=== PATIENT | male | born 1935 | race Caucasian/White ===

== ENCOUNTER 2016-05-28 01:32 | Inpatient (IN) | payer MEDICARE, OTHER ==
[~2016-05-28] VITALS: Ht 177.8 cm; Wt 64.0 kg
[2016-05-28] MEDS ORDERED: IPRATROPIUM 0.5MG/ALBUTEROL 2.5MG INH SOL UD 3ML (DUONEB)(J7620) As Ordered ONE ×2 (02:23→07:03)
[2016-05-28] MEDS ORDERED: ACETAMINOPHEN 325 MG TAB As Ordered ONE (02:34)
[2016-05-28 02:48] LABS: ABG DEVICE NASAL CANN; ABG HCO3 23.6 MEQ/L (22.0-26.0); ABG PARTIAL PRESSURE CO2 35.3 mmHg (35.0-45.0); ABG PARTIAL PRESSURE O2 65.4 mmHg (75.0-100.0); ABG STANDARD HCO3 24.4 MEQ/L (22.0-26.0); ABG TOTAL CO2 24.7 MEQ/L (23.0-31.0); ABG pH (ARTERIAL) 7.443 UNITS (7.350-7.450)
[2016-05-28 03:14] LABS: BASO % 0.4 % (0.0-1.0); EOS # 0.1 K/mm3 (0.0-0.50); EOS % 0.6 % (0.0-3.0); LARGE UNSTAINED CELL # 0.2 K/mm3 (0.0-0.4); LARGE UNSTAINED CELL % 1.5 % (0.0-4.0); LYMPH # 0.4 K/mm3 (1.5-4.5); LYMPH % 3.5 % (24.0-44.0); MEAN CORPUSCULAR HEMOGLOBIN 31.3 pg (27.0-33.0); MEAN CORPUSCULAR HGB CONC 32.5 g/dl (32.0-36.5); MEAN CORPUSCULAR VOLUME 96.3 fl (80.0-96.0); MONO # 0.6 K/mm3 (0.0-0.8); PLATELET COUNT, AUTOMATED 164 k/mm3 (150-450); RED CELL DISTRIBUTION WIDTH 12.5 % (11.5-14.5); WHITE BLOOD COUNT 12.3 K/mm3 (4.0-10.0)
[2016-05-28 03:33] LABS: ANION GAP 9 MEQ/L (8-16); BLOOD UREA NITROGEN 27 MG/DL (7-18); CALCIUM LEVEL 8.2 MG/DL (8.8-10.2); CARBON DIOXIDE LEVEL 29 MEQ/L (21-32); CHLORIDE LEVEL 104 MEQ/L (98-107); CREATININE FOR GFR 1.19 MG/DL (0.70-1.30); GLOMERULAR FILTRATION RATE > 60.0 (>35); GLUCOSE, FASTING 122 MG/DL (83-110); POTASSIUM SERUM 5.1 MEQ/L (3.5-5.1); SODIUM LEVEL 142 MEQ/L (136-145)
[2016-05-28] MEDS ORDERED: CEFUROXIME INJ 750 MG VIAL (J0697) As Ordered ONE (04:01)
[2016-05-28] MEDS ORDERED: IPRATROPIUM 0.5MG/ALBUTEROL 2.5MG INH SOL UD 3ML (DUONEB)(J7620) NEB PRN (04:30)
[2016-05-28] MEDS ORDERED: ONDANSETRON 4MG/2ML VIAL (J2405) IV PRN (04:30)
[2016-05-28] MEDS ORDERED: ACETAMINOPHEN TAB 650MG DOSE (2X325MG) PO PRN (04:30)
[2016-05-28] MEDS ORDERED: LISI10TA4 PO (04:56)
[2016-05-28] MEDS ORDERED: FLOM5CAP PO (04:56)
[2016-05-28] MEDS ORDERED: SIMV40TA2 PO (04:56)
[2016-05-28] MEDS ORDERED: ASPI81TA7 PO (04:56)
[2016-05-28] MEDS ORDERED: CARB25TA PO (04:56)
[2016-05-28] MEDS ORDERED: SLEE1TAB PO (04:58)
[2016-05-28] MEDS ORDERED: diphenhydrAMINE 25 MG CAP PO PRN (05:00)
--- NOTE | 2016-05-28 05:17 | HPE ---
DATE OF ADMISSION: 05/28/2016 PRIMARY CARE PROVIDER: Scot Boyle. CHIEF COMPLAINT: Shortness of breath. HISTORY OF PRESENT ILLNESS: This is an 80-year-old male patient with underlying medical history of Parkinson's disease, hypertension, coronary arterial disease, gastroesophageal reflux disease (GERD), questionable esophageal stricture, was brought to the emergency room for acute worsening shortness of breath. As per patient, for the past 1-2 weeks he has been having an upper respiratory tract infection, coughing productive of green sputum with mild dyspnea, not on home oxygen. Patient lives about [place] away. He comes here to visit his girlfriend every 2 weeks. Also with history of asbestosis exposure and chronic obstructive pulmonary disease (COPD) not on home oxygen. Earlier last night, patient had an episode of dyspnea, acutely worsened, called emergency medical services (EMS), subsequently brought to the emergency room. In the emergency room, patient received nebulizer treatment, as well as intravenous (IV) steroids with improvement of symptoms. Patient was also found to be febrile, initially with mild hypoxia. Patient denies any chest pain, pressure or discomfort. Denies any sick contact. Denies any palpitations. Denies any abdominal pain. Denies any diarrhea or constipation. ALLERGIES: No known allergies reported. PAST MEDICAL HISTORY: 1. COPD. 2. Asbestosis. 3. Parkinson's disease. 4. Hypertension. 5. Coronary arterial disease. 6. GERD. 7. Esophageal stricture. PAST SURGICAL HISTORY: 1. Cardiac stent 6 years ago. 2. Pericardial tissue heart valve. 3. Appendectomy. 4. Back surgery 5 years ago. SOCIAL HISTORY: Patient quit smoking 25 years ago, 2 packs per day for 30 years. Quit alcohol drinking 22 years ago. No illicit drug use. FAMILY HISTORY: Noncontributory. REVIEW OF SYSTEMS: Negative except for those mentioned in the history of present illness (HPI). HOME MEDICATIONS: - carbidopa/levodopa 25/100 mg by mouth three times a day - lisinopril 10 mg by mouth daily twice a day - aspirin 81 mg by mouth daily - Viagra 100 mg one tablet by mouth daily - Flomax 0.4 mg by mouth daily - Zocor 40 mg by mouth daily - Benadryl 25 mg by mouth as needed PHYSICAL EXAMINATION: VITAL SIGNS: Blood pressure 113/58, pulse 120, respirations 24, temperature 100.8, pulse oximetry 91% on 2 liter nasal cannula. GENERAL: Patient alert and oriented times three in no acute distress. HEENT: Normocephalic, atraumatic. PULMONARY: Bilateral expiratory wheeze. Mild rhonchi. CARDIAC: Mild tachycardia, regular, S1, S2. ABDOMEN: Soft, nontender, nondistended. Positive bowel sounds. EXTREMITIES: No edema bilateral lower extremities. EKG pending. LABORATORY: WBC 12.3, hemoglobin and hematocrit 12.7/42.1, platelets 164. AB.44, 35.3, 65.4, 23.6. Chemistry: Sodium 142, potassium 5.1, chloride 104, bicarbonate 29, BUN 27, creatinine 1.12, lactic acid 1.9. ASSESSMENT AND PLAN: This is an 80-year-old male patient with underlying medical history of chronic obstructive pulmonary disease (COPD), asbestosis, Parkinson's disease, hypertension, coronary arterial disease, gastroesophageal reflux disease (GERD), esophageal stricture, admitted with acute COPD exacerbation likely secondary to community-acquired bacterial pneumonia. 1. Acute hypoxia secondary to acute COPD exacerbation with underlying asbestosis likely due to community-acquired bacterial pneumonia. Followup respiratory panel. Influenza negative. Sputum cultures. Blood cultures. Followup C-reactive protein. Rocephin, azithromycin for now. Solu-Medrol for intravenous (IV) steroids. Taper as tolerated. Nebulizer treatments. Will place the patient on Symbicort as well. Wean FiO2. Physical therapy. 2. Parkinson's disease. Continue home medication. 3. Hypertension. Patient currently normotensive. Unknown baseline creatinine function. Will hold lisinopril for now. 4. Coronary arterial disease. Holding angiotensin-converting enzyme (YASMANI) inhibitor. Continue aspirin. 5. Sinus tachycardia likely secondary to nebulizer treatment. Will obtain EKGs and continue to follow. Followup thyroid function tests. 6. Dyslipidemia. Continue statin. 7. Deep venous thrombosis (DVT) prophylaxis. Heparin subcutaneously. DISPOSITION PLANNING: Pending clinical improvement. Wean FiO2. Physical therapy.
[2016-05-28] MEDS: IPRATROPIUM 0.5MG/ALBUTEROL 2.5MG INH SOL UD 3ML (DUONEB)(J7620) NEB SCH ×3 (07:09→20:00)
[2016-05-28] MEDS: SYMBICORT 160/4.5MCG INHALER 6GM INH SCH ×3 (07:10→20:42)
[2016-05-28 07:26] LABS: THYROXINE (T4) 8.9 UG/DL (4.5-12.0)
[2016-05-28 08:00] VITALS: BP 113/57
--- NOTE | 2016-05-28 08:15 | REP ---
CHEST X-RAY: Two views. HISTORY: Shortness of breath. Comparison chest x-ray June 17, 2009. FINDINGS: Oxygen delivery tubing is seen. The lungs are hyperinflated consistent with COPD. The patient is status post aortic valve replacement. The heart is not enlarged. No infiltrate is seen in the lung martínez. Pleural angles are sharp. There are degenerative changes in the thoracic spine. IMPRESSION: Hyperinflation consistent with COPD. Aortic valve replacement. No acute disease. Signed by Daniel Greene MD 05/28/2016 10:06 A
--- NOTE | 2016-05-28 09:05 | ECGEPIP ---
Stationary ECG Study [facility] - ED Test Date: 2016-05-28 Pat Name: BALBIR CUI Department: Room: [place] [address] Gender: M Brewing Director: iris : 1935 Requested By: MAO CRISOSTOMO Order Number: [id number] Reading MD: Jolie Bryan Measurements Intervals [place] Rate: 87 P: 49 [place]: 168 QRS: -24 QRSD: 78 T: 41 QT: 338 QTc: 407 Interpretive Statements SINUS RHYTHM LOW VOLTAGE LIMB BORDERLINE LEFT AXIS DEVIATION MODERATE ST DEPRESSION BASELINE ARTIFACT LIMITS INTERPRETATION NO PRIOR FOR COMPARISON Electronically Signed On 05-28-2016 9:05:31 EST by Jolie Bryan
[2016-05-28] MEDS: cefTRIAXone SOD 2 GM in D5W MINI-BAG PLUS 50 ML IV SCH (09:23)
[2016-05-28] MEDS: methylPREDNISolone INJ 125 MG/2 ML VIAL (J2930) IV SCH ×2 (09:24→17:36)
[2016-05-28] MEDS: AZITHROMYCIN 250 MG TAB PO SCH (09:25)
[2016-05-28] MEDS: SINEMET 25-100 MG TAB PO SCH ×3 (09:25→20:39)
[2016-05-28] MEDS: guaiFENesin ER 600 MG TAB PO SCH ×2 (09:25→20:39)
[2016-05-28] MEDS: PANTOPRAZOLE 40MG TAB (PROTONIX) PO SCH (09:25)
[2016-05-28] MEDS: TAMSULOSIN 0.4 MG CAP PO SCH (09:25)
[2016-05-28] MEDS: SENOKOT S TAB PO SCH ×2 (09:26→20:39)
[2016-05-28] MEDS: HEPARIN SOD (PORCINE) 5000 UNITS/ML VIAL SC SCH ×3 (09:26→20:39)
[2016-05-28] MEDS: ASPIRIN 81 MG ENTERIC TAB PO SCH (09:26)
[2016-05-28 12:00] VITALS: BP 151/74
[2016-05-28] MEDS ORDERED: HEPARIN SOD (PORCINE) 5000 UNITS/ML VIAL As Ordered ONE (14:34)
[2016-05-28 16:00] VITALS: BP 116/66
--- NOTE | 2016-05-28 17:17 | EDDOCDS ---
Physician Documentation [facility] Name: Braeden Marmolejo Age: 80 yrs Sex: Male : 1935 Arrival Date: 05/28/2016 Time: 01:32 Bed 19 Private MD: Disposition: 05/28/16 04:07 Hospitalization ordered by Margaret Thomas for Inpatient Admission. Preliminary diagnosis are Hypoxemia, Bronchitis, not specified as acute or chronic, Pneumonia in diseases classified elsewhere. - Bed requested for PCU. - Status is Inpatient Admission. dsf - Condition is Stable. - Problem is new. - Symptoms have improved. Historical: - Allergies: No known drug Allergies; - Home Meds: 1. carbidopa-levodopa 25-100 mg Oral tab 1 tab 3 times per day 2. lisinopril 10 mg Oral tab 1 tab TWICE A DAY 3. aspirin 81 mg Oral tab 1 tab once daily 4. Viagra 100 mg Oral tab 1 tab once daily 5. tamsulosin 0.4 mg oral cp24 1 cap once daily 6. simvastatin 40 mg Oral tab 1 tab once daily 7. Benadryl 25 mg Oral cap - PMHx: Parkinson's Disease; Hypertension; CAD; GERD; Esophageal Stricture; - PSHx: Heart stents; Pericardial tissue heart valve; Appendectomy; Disc surgery; - Social history: Smoking status: Patient states former smoker of tobacco. No barriers to communication noted, The patient speaks fluent Tajik, Speaks appropriately for age. - Family history: Not pertinent. - : The pt / caregiver states he / she is not on anticoagulants. Home medication list is obtained from pill bottles. - Exposure Risk Screening:: None identified. Vital Signs: 05/28 01:45 BP 113 / 58 LA Sitting (auto/reg); Pulse 121 MON; Resp 24 S; Temp 100.8(O); Pulse Ox cln 91% on 2 lpm NC; Weight 65.77 kg / 145 lbs (R); Height 5 ft. 10 in. (177.80 cm) (R); Pain 0/10; 04:14 BP 101 / 56; Pulse 91; Resp 18; Temp 100.3(O); Pulse Ox 96% on R/A; ko2 07:00 Temp 99.8(TE); ko2 01:45 Body Mass Index 20.81 (65.77 kg, 177.80 cm) cln MDM: 02:16 Chest, 2 View (pa\E\lat) Ordered. EDMS 02:16 -Blood Culture (Adults Only), peripheral from different site, or from device/port/PICC cs11 etc. if present ordered. 02:16 Call Respiratory ordered. cs11 02:16 IV Saline Lock ordered. cs11 02:16 Acetaminophen Tablet 975 mg PO once ordered. cs11 02:17 Albuterol-Ipratropium 3 ml Inhalation once ordered. cs11 02:17 Call Respiratory ordered. cs11 02:17 -Blood Culture (Adults Only), peripheral from different site, or from device/port/PICC ml3 etc. if present complete. 02:17 Lactic Acid (Drake tube on ice) Ordered. EDMS 02:17 CBC with Diff Ordered. EDMS 02:17 MED Profile Ordered. EDMS 02:17 -Arterial Blood Gas Ordered. EDMS 02:17 -Influenza A&B Rapid Antigen - Nose Ordered. EDMS 02:17 -Blood Culture Ordered. EDMS 02:18 Call Respiratory complete. ml3 02:18 Call Respiratory complete. ml3 02:20 BLOOD CULTURES Ordered. EDMS 03:12 -Arterial Blood Gas Reviewed. cs11 03:38 Financial registration complete. slh 03:53 CBC with Diff Reviewed. cs11 03:53 MED Profile Reviewed. cs11 03:53 -Influenza A&B Rapid Antigen - Nose Reviewed. cs11 03:53 Lactic Acid (Drake tube on ice) Reviewed. cs11 03:55 cefUROXime 1.5 grams IV at calculated rate once over 30 mins; dilute in 50mL of NS or cs11 D5W ordered. 04:01 BED REQUEST+ADM ordered. EDMS 04:11 [facility] Payment Agreement was scanned into [employer] and attached to record. [facility] 04:23 ECG WITH READING ER PHYS+CARDIAG ordered. EDMS 04:26 RESPIRATORY PANEL Ordered. EDMS 04:26 SPUTUM CULTURE AND GRAM STAIN Ordered. EDMS 04:30 PHYSICAL THERAPY EVAL & TREAT ordered. EDMS 04:31 Admission / Observation Status ordered. EDMS 04:32 LOW FAT LOW CHOLESTEROL DIET ordered. EDMS 04:39 THYROID PROFILE Ordered. EDMS 06:47 C REACTIVE PROTEIN QUANTITATIV Ordered. EDMS Administered Medications: 02:40 Drug: Acetaminophen 975 mg [acetaminophen 325 mg tablet (3 tabs)] Route: PO; ko2 02:44 Drug: Albuterol-Ipratropium 3 ml [ipratropium-albuterol 0.5 mg-3 mg(2.5 mg base)/3 mL nk1 nebulization soln (3 mL)] Route: Inhalation; 02:50 Follow up: Response: Nebulizer completed nk1 04:12 Drug: cefUROXime 1.5 grams [cefuroxime sodium 750 mg solution for injection] Route: IV; ko2 Rate: calculated rate; Infused Over: 30 mins; Site: right forearm; 05:10 Follow up: IV Status: Completed infusion; IV Intake: 50ml ko2 Signatures: Dispatcher [employer] EDMS Barbra Stahl, Corporate Compliance Manager Unit ml3 Marley RamosRN RN bonnie3 Eli DamonRN RN davidf Guero White, DO cs11 Bonnie Olivo RN RN ko2 Michelle Hdz [facility] Claire Smith nk1 The chart was reviewed and I authenticate all verbal orders and agree with the evaluation and treatment provided.Corrections: (The following items were deleted from the chart) 06:47 04:26 C REACTIVE PROTEIN QUANTITATIV ordered. EDMS EDMS Attachments: 04:11 [facility] Payment Agreement [facility] MTDD
--- NOTE | 2016-05-28 17:17 | EDDOCDS ---
Nurse's Notes [facility] Name: Braeden Marmolejo Age: 80 yrs Sex: Male : 1935 Arrival Date: 05/28/2016 Time: 01:32 Bed 19 Private MD: Diagnosis: Hypoxemia;Bronchitis, not specified as acute or chronic;Pneumonia in diseases classified elsewhere Presentation: 05/28 01:37 Presenting complaint: Presenting complaint: EMS states: pt was laying in bed and ko2 couldn't breath. Audible wheezes per EMS. Pt has felt like hes been getting a cold the last 4 days. 01:39 Suicide/Homicide risk assessment- the patient denies having any suicidal and/or ko2 homicidal ideations and does not present with any other emotional, behavioral or mental health complaints. Transition of care: patient was not received from another setting of care. Care prior to arrival: See EMS report. Medications administered prior to arrival: Nebulized Albuterol, Saline lock initiated. 01:39 Acuity: ARTURO Level 3 ko2 01:39 Method Of Arrival: Ambulance ko2 03:03 Adult Sepsis Screening: The patient does not have new or worsening altered mentation. ko2 Patient's respiratory rate is less than 22. Systolic blood pressure is greater than 100. Patient has a qSOFA score of 0- Negative Sepsis Screen. Status: Patient is not a creative services writer or dependent. Triage Assessment: 02:02 General: Appears in no apparent distress, Behavior is appropriate for age, cooperative. ko2 Pain: Denies pain. The patient is triaged at the bedside. See Assessment in Nurses Notes section of ED record. Neurological: Level of Consciousness is awake, alert. Respiratory: Onset: The symptoms/episode began/occurred suddenly, Airway is patent Respiratory effort is even, unlabored, Reports cough that is. Derm: Skin is normal. Historical: - Allergies: No known drug Allergies; - Home Meds: 1. carbidopa-levodopa 25-100 mg Oral tab 1 tab 3 times per day 2. lisinopril 10 mg Oral tab 1 tab TWICE A DAY 3. aspirin 81 mg Oral tab 1 tab once daily 4. Viagra 100 mg Oral tab 1 tab once daily 5. tamsulosin 0.4 mg oral cp24 1 cap once daily 6. simvastatin 40 mg Oral tab 1 tab once daily 7. Benadryl 25 mg Oral cap - PMHx: Parkinson's Disease; Hypertension; CAD; GERD; Esophageal Stricture; - PSHx: Heart stents; Pericardial tissue heart valve; Appendectomy; Disc surgery; - Social history: Smoking status: Patient states former smoker of tobacco. No barriers to communication noted, The patient speaks fluent Serbian, Speaks appropriately for age. - Family history: Not pertinent. - : The pt / caregiver states he / she is not on anticoagulants. Home medication list is obtained from pill bottles. - Exposure Risk Screening:: None identified. Screenin:03 Screening information is obtained from the patient. Fall risk: No risks identified. ko2 Assistance ADL's: requires no assistance with activities of daily living. Abuse/DV Screen: The patient / caregiver reports he/she is: not in a situation that causes fear, pain or injury. Nutritional screening: No deficits noted. Advance Directives: Currently, there is no health care proxy. There is no active DNR order. There is no living will. There is no Power of Baseball Scout. home support is adequate. Assessment: 02:02 General: See triage assessment. ko2 03:02 General: Appears in no apparent distress, Behavior is appropriate for age, cooperative. ko2 Pain: Denies pain. Neurological: Level of Consciousness is awake, alert. Cardiovascular: Heart tones S1 S2 present. Respiratory: Airway is patent Respiratory effort is even, unlabored, Breath sounds are diminished Breath sounds with wheezes. Derm: Skin is normal. 04:13 General: Appears in no apparent distress, Behavior is appropriate for age, cooperative. ko2 Neurological: Level of Consciousness is awake, alert. Respiratory: Airway is patent Respiratory effort is even, unlabored. Derm: Skin is normal, Skin temperature is warm. 05:23 General: Appears in no apparent distress, comfortable, Behavior is appropriate for age, ko2 cooperative. Neurological: Level of Consciousness is awake, alert. Respiratory: Airway is patent Respiratory effort is even, unlabored. Derm: Skin is normal. 06:25 General: Appears in no apparent distress, comfortable, Behavior is appropriate for age, ko2 cooperative. Neurological: Level of Consciousness is awake, alert. Respiratory: Airway is patent Respiratory effort is even, unlabored. Derm: Skin is normal. 07:11 General: Report given to JOSE D Nelson. See [facility] for further ko2 documentation.. 09:11 Cardiovascular: Rhythm is sinus rhythm. [facility] Vital Signs: 01:45 BP 113 / 58 LA Sitting (auto/reg); Pulse 121 MON; Resp 24 S; Temp 100.8(O); Pulse Ox cln 91% on 2 lpm NC; Weight 65.77 kg (R); Height 5 ft. 10 in. (177.80 cm) (R); Pain 0/10; 04:14 BP 101 / 56; Pulse 91; Resp 18; Temp 100.3(O); Pulse Ox 96% on R/A; ko2 07:00 Temp 99.8(TE); ko2 01:45 Body Mass Index 20.81 (65.77 kg, 177.80 cm) cln Vitals: 03:04 Log In Time N/A - ambulance arrival. ko2 ED Course: 01:33 Patient visited by Barbra Stahl, Nuclear Pharmacist. ml3 01:33 Patient moved to Waiting ml3 01:35 Marie RodriguezRN is Primary Nurse. ml3 01:35 Bonnie Olivo,JOSE D is Primary Nurse. ml3 01:35 Patient moved to 9 ml3 01:41 Triage Initiated ko2 01:46 Patient visited by Anjana Mosley, ZACHARY. cln 02:03 Patient visited by Bonnie Olivo RN. ko2 02:03 Maintain field IV. Dressing intact. Good blood return noted. Site clean & dry. Gauge & ko2 site: 18 gauge right AC. 02:05 Mao Crisostomo DO is Attending Physician. cs11 02:06 Patient visited by Mao Crisostomo DO. cs11 02:44 -Arterial Blood Gas Sent. nk1 02:55 Discontinued lock intact, bleeding controlled, pressure dressing applied, No ko2 redness/swelling at site. 03:00 Inserted saline lock: 20 gauge in left forearm. ko2 03:01 Patient visited by Bonnie Olivo RN. ko2 03:02 BLOOD CULTURES Sent. ko2 03:02 MED Profile Sent. ko2 03:02 CBC with Diff Sent. ko2 03:02 Lactic Acid (Drake tube on ice) Sent. ko2 03:02 -Influenza A&B Rapid Antigen - Nose Sent. ko2 03:03 The patient / caregiver is instructed regarding the plan of care and ED course. ko2 03:52 Patient visited by Bonnie Olivo RN. ko2 04:05 Margaret Thomas is Hospitalizing Provider. cs11 04:09 Patient name changed from Braeden\S\\S\Snow\S\ to Braeden\S\J\S\Snow. EDMS 04:11 [facility] Payment Agreement was scanned into [employer] ([email or web address]) and attached to record. [facility] 04:36 EKG done. (by ED staff). Reviewed by Mao Crisostomo DO. cln 04:40 Primary Nurse role handed off by Marie Rodriguez RN ko2 04:51 Patient moved to Admit Hold ml3 05:24 Patient visited by Bonnie Olivo RN. ko2 06:42 Patient moved to Apr 07:44 Primary Nurse role handed off by Bonnie Olivo RN ar3 08:49 Chest, 2 View (pa\E\lat) Returned. EDMS 09:11 Patient visited by Dimitry Glover RN. bcj 09:24 EKG-ADULT Returned. EDMS Administered Medications: 02:40 Drug: Acetaminophen 975 mg [acetaminophen 325 mg tablet (3 tabs)] Route: PO; ko2 02:44 Drug: Albuterol-Ipratropium 3 ml [ipratropium-albuterol 0.5 mg-3 mg(2.5 mg base)/3 mL nk1 nebulization soln (3 mL)] Route: Inhalation; 02:50 Follow up: Response: Nebulizer completed nk1 04:12 Drug: cefUROXime 1.5 grams [cefuroxime sodium 750 mg solution for injection] Route: IV; ko2 Rate: calculated rate; Infused Over: 30 mins; Site: right forearm; 05:10 Follow up: IV Status: Completed infusion; IV Intake: 50ml ko2 Intake: 05:10 IV: 50.00ml; Total: 50.00ml. ko2 RT: 02:44 ABG's drawn from left brachial artery pressure held for 5 minuntes no bleeding noted nk1 pressure bandage applied specimen sent pt. tolerated well. Initial Med Neb Given as ordered Patient was instructed and evaluated on procedure Patient tolerated procedure well without adverse effect. Respiratory: Airway is patent Respiratory effort is even, unlabored, Breath sounds are coarse. 02:49 Respiratory: Breath sounds are coarse with increased aeration. nk1 Order Results: Lab Order: -Influenza A&B Rapid Antigen - Nose; SPEC'M 05/28/16 02:58 Test: INFLUENZA A RAPID SCR by ICA; Value: INFLUENZA A RESULTS NEGATIVE; Status: F Test: INFLUENZA A RAPID SCR by ICA; Value: Comments:; Status: F Test: INFLUENZA B RAPID SCR by ICA; Value: INFLUENZA B RESULTS NEGATIVE; Status: F Test Note: ; The Influenza test is a direct rapid immunoassay for the qualitative detection of Influenza viral antigen. Cell culture (Viral Culture) testing should be considered to confirm NEGATIVE results and to assist in detecting other viruses that can provide similar clinical symptoms. Please contact the lab within 24 hours ([phone]) if confirmatory testing is desired. Lab Order: Lactic Acid (Drake tube on ice); SPEC'M 05/28/16 02:58 Test: LACTIC ACID SEPSIS PROTOCOL; Value: 1.9; Range: 0.4-2.0; Units: MMOL/L; Status: F Lab Order: CBC with Diff; SPEC'05/28/16 02:58 Test: WHITE BLOOD COUNT; Value: 12.3; Range: 4.0-10.0; Abnormal: Above high normal; Units: K/mm3; Status: F Test: RED BLOOD COUNT; Value: 4.37; Range: 4.30-6.10; Units: M/mm3; Status: F Test: HEMOGLOBIN; Value: 13.7; Range: 14.0-18.0; Abnormal: Below low normal; Units: g/dl; Status: F Test: HEMATOCRIT; Value: 42.1; Range: 42.0-52.0; Units: %; Status: F Test: MEAN CORPUSCULAR VOLUME; Value: 96.3; Range: 80.0-96.0; Abnormal: Above high normal; Units: fl; Status: F Test: MEAN CORPUSCULAR HEMOGLOBIN; Value: 31.3; Range: 27.0-33.0; Units: pg; Status: F Test: MEAN CORPUSCULAR HGB CONC; Value: 32.5; Range: 32.0-36.5; Units: g/dl; Status: F Test: RED CELL DISTRIBUTION WIDTH; Value: 12.5; Range: 11.5-14.5; Units: %; Status: F Test: PLATELET COUNT, AUTOMATED; Value: 164; Range: 150-450; Units: k/mm3; Status: F Test: NEUTROPHILS %; Value: 89.0; Range: 36.0-66.0; Abnormal: Above high normal; Units: %; Status: F Test: LYMPH %; Value: 3.5; Range: 24.0-44.0; Abnormal: Below low normal; Units: %; Status: F Test: MONO %; Value: 5.0; Range: 0.0-5.0; Units: %; Status: F Test: EOS %; Value: 0.6; Range: 0.0-3.0; Units: %; Status: F Test: BASO %; Value: 0.4; Range: 0.0-1.0; Units: %; Status: F Test: LARGE UNSTAINED CELL %; Value: 1.5; Range: 0.0-4.0; Units: %; Status: F Test: NEUTROPHILS #; Value: 11.0; Range: 1.8-7.7; Abnormal: Above high normal; Units: K/mm3; Status: F Test: LYMPH #; Value: 0.4; Range: 1.5-4.5; Abnormal: Below low normal; Units: K/mm3; Status: F Test: MONO #; Value: 0.6; Range: 0.0-0.8; Units: K/mm3; Status: F Test: EOS #; Value: 0.1; Range: 0.0-0.50; Units: K/mm3; Status: F Test: BASO #; Value: 0.0; Range: 0.0-0.2; Units: K/mm3; Status: F Test: LARGE UNSTAINED CELL #; Value: 0.2; Range: 0.0-0.4; Units: K/mm3; Status: F Lab Order: MED Profile; SPEC'M 05/28/16 02:58 Test: GLUCOSE, FASTING; Value: 122; Range: 83-110; Abnormal: Above high normal; Units: MG/DL; Status: F Test: BLOOD UREA NITROGEN; Value: 27; Range: 7-18; Abnormal: Above high normal; Units: MG/DL; Status: F Test: CREATININE FOR GFR; Value: 1.19; Range: 0.70-1.30; Units: MG/DL; Status: F Test: GLOMERULAR FILTRATION RATE; Value: > 60.0; Range: >35; Status: F Test: SODIUM LEVEL; Value: 142; Range: 136-145; Units: MEQ/L; Status: F Test: POTASSIUM SERUM; Value: 5.1; Range: 3.5-5.1; Units: MEQ/L; Status: F Test: CHLORIDE LEVEL; Value: 104; Range: 98-107; Units: MEQ/L; Status: F Test: CARBON DIOXIDE LEVEL; Value: 29; Range: 21-32; Units: MEQ/L; Status: F Test: ANION GAP; Value: 9; Range: 8-16; Units: MEQ/L; Status: F Test: CALCIUM LEVEL; Value: 8.2; Range: 8.8-10.2; Abnormal: Below low normal; Units: MG/DL; Status: F Test Note: ; Units are mL/min/1.73 m2 Chronic Kidney Disease Staging per NKF: Stage I & II GFR >=60 Normal to Mildly Decreased Stage III GFR 30-59 Moderately Decreased Stage IV GFR 15-29 Severely Decreased Stage V GFR <15 Very Little GFR Left ESRD GFR <15 on EMBRYOLOGY PROFESSOR Lab Order: -Arterial Blood Gas; [facility]' 05/28/16 02:27 Test: ABG pH (ARTERIAL); Value: 7.443; Range: 7.350-7.450; Units: UNITS; Status: F Test: ABG PARTIAL PRESSURE CO2; Value: 35.3; Range: 35.0-45.0; Units: mmHg; Status: F Test: ABG PARTIAL PRESSURE O2; Value: 65.4; Range: 75.0-100.0; Abnormal: Below low normal; Units: mmHg; Status: F Test: ABG TOTAL CO2; Value: 24.7; Range: 23.0-31.0; Units: MEQ/L; Status: F Test: ABG HCO3; Value: 23.6; Range: 22.0-26.0; Units: MEQ/L; Status: F Test: ABG BASE EXCESS; Value: 0.0; Range: -2.0-2.0; Status: F Test: ABG STANDARD HCO3; Value: 24.4; Range: 22.0-26.0; Units: MEQ/L; Status: F Test: ABG O2 SATURATION; Value: 94.1; Range: 95.0-99.0; Abnormal: Below low normal; Units: %; Status: F Test: ABG DEVICE; Value: NASAL SHUN; Status: F Lab Order: RESPIRATORY PANEL; SPEC'M 05/28/16 02:57 Test: RESPIRATORY PANEL; Value: RP PANEL RESULT POSITIVE by PCR; Abnormal: Abnormal; Status: F Test: RESPIRATORY PANEL; Value: Comments:; Status: F Test: RESPIRATORY PANEL; Value: ORGANISM 1: RESPIRATORY SYNCYTIAL VIRUS; Status: F Test: RESPIRATORY PANEL; Value: RESPIRATORY SYNCYTIAL VIRUS; Status: F Test: RESPIRATORY PANEL; Value: RSV 1 RSV is the most common cause of severe respiratory; Status: F Test: RESPIRATORY PANEL; Value: RSV 2 disease in infants, with acute bronchiolitis as the; Status: F Test: RESPIRATORY PANEL; Value: RSV 3 major cause of hospitalization. Treatment or; Status: F Test: RESPIRATORY PANEL; Value: RSV 4 prophlaxis with a humanized monoclonal antibody; Status: F Test: RESPIRATORY PANEL; Value: RSV 5 has shown a reduction in disease for high risk infants.; Status: F Test Note: ; This respiratory PCR panel detects Influenza A H1, H3 and 2009 H1 viruses, Influenza B virus, Respiratory syncytial virus, Human metapneumovirus, Parainfluenza virus 1, 2, 3 and 4, Adenovirus, Rhinovirus/Enterovirus, Coronavirus HKU1, NL63, OC43 and 229E, Bordetella pertussis, Mycoplasma pneumoniae and Chlamydia pneumoniae. Lab Order: SPUTUM CULTURE AND GRAM STAIN; SPEC'M 05/28/16 10:54 Test: GRAM STAIN; Value: GRAM STAIN RESULT; Status: F Test: GRAM STAIN; Value: QUALITY: GOOD; Status: F Test: GRAM STAIN; Value: MANY WBCS; Status: F Test: GRAM STAIN; Value: FEW EPITHELIAL CELLS; Status: F Test: GRAM STAIN; Value: FEW GRAM POSITIVE COCCI IN CLUSTERS AND CHAINS; Status: F Lab Order: THYROID PROFILE; SPEC'M 05/28/16 06:31 Test: T UPTAKE; Value: 42; Range: 33-40; Abnormal: Above high normal; Units: %; Status: F Test: THYROXINE (T4); Value: 8.9; Range: 4.5-12.0; Units: UG/DL; Status: F Test: FREE THYROXINE INDEX; Value: 3.7; Range: 1.4-3.8; Units: %; Status: F Test: THYROID STIMULATING HORMONE; Value: 0.903; Range: 0.358-3.740; Units: uIU/ML; Status: F Lab Order: C REACTIVE PROTEIN QUANTITATIV; SPEC'M 05/28/16 06:31 Test: C REACTIVE PROTEIN QUANTITATIV; Value: 0.74; Range: 0.00-0.30; Abnormal: Above high normal; Units: MG/DL; Status: F Radiology Order: Chest, 2 View (pa\E\lat) Test: Chest, 2 View (pa\E\lat) REASON FOR EXAMINATION: Shortness of Breath; CHEST X-RAY: Two views.; ; HISTORY: Shortness of breath.; ; Comparison chest x-ray June 17, 2009.; ; FINDINGS: Oxygen delivery tubing is seen. The lungs are hyperinflated; consistent with COPD. The patient is status post aortic valve replacement. The; heart is not enlarged. No infiltrate is seen in the lung martínez. Pleural angles; are sharp. There are degenerative changes in the thoracic spine.; ; IMPRESSION: Hyperinflation consistent with COPD. Aortic valve replacement. No; acute disease.; ; ; Signed by; Daniel Greene MD 05/28/2016 10:06 A; Radiology Order: EKG-ADULT Test: EKG-ADULT REASON FOR EXAMINATION: eval tachycardia; Stationary ECG Study; [facility] - ED; ; Test Date: 2016-05-28; Pat Name: BRAEDEN MARMOLEJO Department:; Room: [place] [address]; Gender: M Disk Sharpener: cn; : 1935 Requested By: MAO CRISOSTOMO; Order Number: [id number] Reading MD: Jolie Bryan; Measurements; Intervals Palmer; Rate: 87 P: 49; MD: 168 QRS: -24; QRSD: 78 T: 41; QT: 338; QTc: 407; Interpretive Statements; SINUS RHYTHM; LOW VOLTAGE LIMB; BORDERLINE LEFT AXIS DEVIATION; MODERATE ST DEPRESSION; BASELINE ARTIFACT LIMITS INTERPRETATION; NO PRIOR FOR COMPARISON; Electronically Signed On 05-28-2016 9:05:31 EST by Jolie Bryan; Outcome: 04:07 Decision to Hospitalize by Provider. cs11 17:16 Patient left the ED. dsf Signatures: Dispatcher [employer] EDMS Dimitry Glover, RN RN elvie Desai, Orly Wagner, RN RN Barbra Goode, Nuclear Pharmacist Unit ml3 Claire Smith,RT RT nk1 Shyanne Obrien, ELECTRONIC TYPESETTING MACHINE OPERATOR ELECTRONIC TYPESETTING MACHINE OPERATOR ar3 Eli Damon,RN RN dsf Mao Crisostomo, DO cs11 Bonnie OlivoRN RN ko2 Michelle Hdz [facility] Melany, Anjana, ELECTRONIC TYPESETTING MACHINE OPERATOR ELECTRONIC TYPESETTING MACHINE OPERATOR cln Corrections: (The following items were deleted from the chart) 01:41 01:37 Presenting complaint: ko2 ko2 MTDD
[2016-05-28 17:23] VITALS: BP 125/58
--- NOTE | 2016-05-28 18:57 | IPN ---
DATE: 05/28/2016 SUBJECTIVE: The patient is seen and examined in the room today. The patient's breathing is improving. The patient had a colored sputum in the past few days. I had a chance to talk to the patient's daughter this morning. We found out the patient had a similar episode in the past. The patient was admitted to the hospital two years ago with flu-like symptoms, that hospitalization occurring in some other facility. During that hospitalization, the patient was found to have pneumonia, and the patient had a near- experience from that episode. In this current respiratory illness was resolved in similar events like the last hospitalization. All questions are answered. OBJECTIVE: VITAL SIGNS: The patient is in the emergency department (ED) holding area. The most recent vitals include a blood pressure of 113/58, pulse is 120, respirations 24, temperature is 100.8, pulse oximetry 91% on two liters nasal cannula. GENERAL: No sign of acute distress. Alert and oriented times three. HEENT: Normocephalic, atraumatic. Extraocular motor grossly intact. CARDIOVASCULAR: Positive S1, S2. Regular rate. LUNGS: Significant expiratory wheezes, prolonged expiratory phase, positive rhonchi more significant in the right middle and lower lobes. ABDOMEN: Soft, nontender, nondistended. Bowel sounds present. No rebound, no guarding. EXTREMITIES: No edema. No cyanosis. LABORATORY DATA: WBC of 12.3, hemoglobin 13.7, hematocrit 42.1, platelet count 164. Sodium is 142, potassium 5.1, chloride 104, carbon dioxide is 29, BUN 27, creatinine 1.19, GFR greater than 60, fasting glucose of 122, lactic acid 1.9. C-reactive protein 0.74. TSH is 0.903. Free T4 is 3.7. MICROBIOLOGY: Respiratory viral panel showed positive for respiratory syncytial virus (RSV). Blood cultures pending times two sets. Sputum cultures pending. Preliminary result shows free gram-positive cocci in clusters and chains. Await the official results. ASSESSMENT AND PLAN: 1. Acute respiratory distress, most likely secondary to chronic obstructive pulmonary disease (COPD) exacerbation. The patient is on Rocephin and azithromycin. The patient is on breathing treatments. The patient is on intravenous (IV) Solu-Medrol. 2. Chronic obstructive pulmonary disease exacerbation, most likely secondary to respiratory syncytial virus (RSV). We are in the process of ruling out the bacterial infection. Followup the sputum cultures. The patient is on breathing treatments, IV antibiotics, IV Solu-Medrol. At baseline, the patient does not require home oxygen support. 3. History of asbestos exposure. 4. Parkinson's disease. The patient is on Sinemet. 5. Hypertension. Due to the patient's soft blood pressure, lisinopril is on hold. 6. History of coronary artery disease status post stent placement. The patient is on aspirin and Zocor. 7. History of gastroesophageal reflux disease, on Protonix. 8. History of gastroesophageal stricture, on Protonix. 9. Deep venous thrombosis (DVT) prophylaxis. The patient is on heparin.
[2016-05-28 19:45] VITALS: BP 132/66
[2016-05-28] MEDS ORDERED: SIMVASTATIN 40 MG TAB PO SCH (21:00)
[2016-05-29 00:16] VITALS: BP 126/68
[2016-05-29] MEDS: IPRATROPIUM 0.5MG/ALBUTEROL 2.5MG INH SOL UD 3ML (DUONEB)(J7620) NEB SCH ×2 (00:26→07:36)
[2016-05-29] MEDS ORDERED: SLF 3 ML SYR IV PRN (02:15)
[2016-05-29 05:09] VITALS: BP 129/62
[2016-05-29 05:18] LABS: MEAN CORPUSCULAR HEMOGLOBIN 31.9 pg (27.0-33.0); MEAN CORPUSCULAR HGB CONC 33.5 g/dl (32.0-36.5); MEAN CORPUSCULAR VOLUME 95.2 fl (80.0-96.0); RED CELL DISTRIBUTION WIDTH 12.8 % (11.5-14.5); WHITE BLOOD COUNT 8.9 K/mm3 (4.0-10.0)
[2016-05-29 05:40] LABS: ANION GAP 10 MEQ/L (8-16); BLOOD UREA NITROGEN 24 MG/DL (7-18); CALCIUM LEVEL 8.2 MG/DL (8.8-10.2); CARBON DIOXIDE LEVEL 27 MEQ/L (21-32); CHLORIDE LEVEL 104 MEQ/L (98-107); CREATININE FOR GFR 1.02 MG/DL (0.70-1.30); GLOMERULAR FILTRATION RATE > 60.0 (>35); GLUCOSE, FASTING 152 MG/DL (83-110); MAGNESIUM LEVEL 2.1 MG/DL (1.8-2.4); POTASSIUM SERUM 4.4 MEQ/L (3.5-5.1); SODIUM LEVEL 141 MEQ/L (136-145)
[2016-05-29] MEDS: HEPARIN SOD (PORCINE) 5000 UNITS/ML VIAL SC SCH (05:51)
[2016-05-29] MEDS: methylPREDNISolone INJ 125 MG/2 ML VIAL (J2930) IV SCH (05:52)
[2016-05-29] MEDS ORDERED: SLF 3 ML SYR IV SCH (06:00)
[2016-05-29] MEDS: SYMBICORT 160/4.5MCG INHALER 6GM INH SCH (07:36)
[2016-05-29 08:00] VITALS: BP 141/89
[2016-05-29] MEDS: cefTRIAXone SOD 2 GM in D5W MINI-BAG PLUS 50 ML IV SCH (09:00)
[2016-05-29] MEDS: guaiFENesin ER 600 MG TAB PO SCH (09:03)
[2016-05-29] MEDS: TAMSULOSIN 0.4 MG CAP PO SCH (09:03)
[2016-05-29] MEDS: PANTOPRAZOLE 40MG TAB (PROTONIX) PO SCH (09:03)
[2016-05-29] MEDS: SENOKOT S TAB PO SCH (09:03)
[2016-05-29] MEDS: AZITHROMYCIN 250 MG TAB PO SCH (09:03)
[2016-05-29] MEDS: SINEMET 25-100 MG TAB PO SCH (09:03)
[2016-05-29] MEDS: ASPIRIN 81 MG ENTERIC TAB PO SCH (09:03)
[2016-05-29] MEDS ORDERED: PRED20TA PO (09:14)
[2016-05-29] MEDS ORDERED: AZIT250T3 PO (09:14)
--- NOTE | 2016-05-29 17:32 | DSES ---
DATE OF ADMISSION: 05/28/2016 DATE OF DISCHARGE: 05/29/2016 CONSULTANTS: None. PROCEDURES: None. COMPLICATIONS: None. PRIMARY CARE PROVIDER: Arash Boyle. ADMISSION/DISCHARGE DIAGNOSES: 1. Acute respiratory distress secondary to chronic obstructive pulmonary disease (COPD) exacerbation. 2. Chronic obstructive pulmonary disease exacerbation secondary to respiratory syncytial virus (RSV). 3. Respiratory syncytial virus infection. 4. History of asbestos exposure. 5. Parkinson's disease. 6. Hypertension. 7. History of coronary artery disease status post stent placement. 8. History of gastroesophageal reflux disease. 9. Gastroesophageal stricture. HOSPITALIZATION COURSE: The patient is an 80-year-old male who presented to [facility] on 05/28/2016, with acute worsening shortness of breath for the past 1-2 weeks. The patient was admitted. All the diagnostics were performed. The patient was determined to have COPD exacerbation. Respiratory panel was obtained, (please clarify) sample was obtained, and the patient was started on intravenous (IV) steroids, IV antibiotics, and nebulizer treatments. The patient's symptoms showed significant improvement with the conservative medical management. Later, the microbiology came back positive for RSV. On the next morning of hospitalization, the patient's breathing returned to his baseline. The patient does not require any oxygen support, the patient is determined medically stable for discharge with recommendation to continue with azithromycin and prednisone taper. The patient is recommended to followup with the primary care provider within one week. OBJECTIVE: VITAL SIGNS: Temperature is 96.5, pulse 92, respirations 20, blood pressure is 141/89, pulse oximetry 92% on room air. LABORATORY DATA: WBC is 8.9, hemoglobin is 12.6, hematocrit 37.5, platelet count is 162. Sodium is 141, potassium 4.4, chloride 104, carbon dioxide 27, BUN 24, creatinine 1.02, GFR greater than 60, fasting glucose 152, calcium 8.2, magnesium 2.1. C-reactive protein is 2.03. TSH is 0.9. Free T4 is 3.7. ABG showed pH of 7.44, pCO2 of 35.3, pO2 is 65.4, and HCO2 is 23.6. MICROBIOLOGY: Respiratory virus panel, PCR showed positive for RSV. Blood cultures negative after 44 hours times two sets. Influenza negative. Sputum culture showed many WBC, few epithelial cells, and few gram-positive cocci in clusters and chains. IMAGING: Chest x-ray shows hyperinflation consistent with COPD. Aortic valve replacement. No acute disease. DISCHARGE MEDICATIONS: - azithromycin 500 mg by mouth daily for four more days - steroids on tapering dose - aspirin 81 mg by mouth daily - carbidopa/levodopa 25/100 mg one tablet by mouth twice a day - diphenhydramine 25 mg by mouth at bedtime as needed for insomnia - lisinopril 10 mg by mouth daily - simvastatin 40 mg by mouth at bedtime - Flomax 0.4 mg by mouth daily DISCHARGE INSTRUCTIONS: Discontinue lines. Discharge home. Activity as tolerated. Low-salt diet as tolerated. The patient should follow with the primary care provider within one week. DISCHARGE CONDITION: Stable. DISCHARGE TIME: Greater than 30 minutes.
--- NOTE | 2016-05-30 18:16 | EDDOCDS ---
Physician Documentation [facility] Name: Braeden Marmolejo Age: 80 yrs Sex: Male : 1935 Arrival Date: 05/28/2016 Time: 01:32 Bed 19 Private MD: Disposition: 05/28/16 04:07 Hospitalization ordered by Margaret Thomas for Inpatient Admission. Preliminary diagnosis are Hypoxemia, Bronchitis, not specified as acute or chronic, Pneumonia in diseases classified elsewhere. - Bed requested for PCU. - Status is Inpatient Admission. dsf - Condition is Stable. - Problem is new. - Symptoms have improved. Historical: - Allergies: No known drug Allergies; - Home Meds: 1. carbidopa-levodopa 25-100 mg Oral tab 1 tab 3 times per day 2. lisinopril 10 mg Oral tab 1 tab TWICE A DAY 3. aspirin 81 mg Oral tab 1 tab once daily 4. Viagra 100 mg Oral tab 1 tab once daily 5. tamsulosin 0.4 mg oral cp24 1 cap once daily 6. simvastatin 40 mg Oral tab 1 tab once daily 7. Benadryl 25 mg Oral cap - PMHx: Parkinson's Disease; Hypertension; CAD; GERD; Esophageal Stricture; - PSHx: Heart stents; Pericardial tissue heart valve; Appendectomy; Disc surgery; - Social history: Smoking status: Patient states former smoker of tobacco. No barriers to communication noted, The patient speaks fluent Montserratian, Speaks appropriately for age. - Family history: Not pertinent. - : The pt / caregiver states he / she is not on anticoagulants. Home medication list is obtained from pill bottles. - Exposure Risk Screening:: None identified. Vital Signs: 05/28 01:45 BP 113 / 58 LA Sitting (auto/reg); Pulse 121 MON; Resp 24 S; Temp 100.8(O); Pulse Ox cln 91% on 2 lpm NC; Weight 65.77 kg / 145 lbs (R); Height 5 ft. 10 in. (177.80 cm) (R); Pain 0/10; 04:14 BP 101 / 56; Pulse 91; Resp 18; Temp 100.3(O); Pulse Ox 96% on R/A; ko2 07:00 Temp 99.8(TE); ko2 01:45 Body Mass Index 20.81 (65.77 kg, 177.80 cm) cln MDM: 02:16 Chest, 2 View (pa\E\lat) Ordered. EDMS 02:16 -Blood Culture (Adults Only), peripheral from different site, or from device/port/PICC cs11 etc. if present ordered. 02:16 Call Respiratory ordered. cs11 02:16 IV Saline Lock ordered. cs11 02:16 Acetaminophen Tablet 975 mg PO once ordered. cs11 02:17 Albuterol-Ipratropium 3 ml Inhalation once ordered. cs11 02:17 Call Respiratory ordered. cs11 02:17 -Blood Culture (Adults Only), peripheral from different site, or from device/port/PICC ml3 etc. if present complete. 02:17 Lactic Acid (Drake tube on ice) Ordered. EDMS 02:17 CBC with Diff Ordered. EDMS 02:17 MED Profile Ordered. EDMS 02:17 -Arterial Blood Gas Ordered. EDMS 02:17 -Influenza A&B Rapid Antigen - Nose Ordered. EDMS 02:17 -Blood Culture Ordered. EDMS 02:18 Call Respiratory complete. ml3 02:18 Call Respiratory complete. ml3 02:20 BLOOD CULTURES Ordered. EDMS 03:12 -Arterial Blood Gas Reviewed. cs11 03:38 Financial registration complete. slh 03:53 CBC with Diff Reviewed. cs11 03:53 MED Profile Reviewed. cs11 03:53 -Influenza A&B Rapid Antigen - Nose Reviewed. cs11 03:53 Lactic Acid (Drake tube on ice) Reviewed. cs11 03:55 cefUROXime 1.5 grams IV at calculated rate once over 30 mins; dilute in 50mL of NS or cs11 D5W ordered. 04:01 BED REQUEST+ADM ordered. EDMS 04:11 [facility] Payment Agreement was scanned into Rigel and attached to record. slh 04:23 ECG WITH READING ER PHYS+CARDIAG ordered. EDMS 04:26 RESPIRATORY PANEL Ordered. EDMS 04:26 SPUTUM CULTURE AND GRAM STAIN Ordered. EDMS 04:30 PHYSICAL THERAPY EVAL & TREAT ordered. EDMS 04:31 Admission / Observation Status ordered. EDMS 04:32 LOW FAT LOW CHOLESTEROL DIET ordered. EDMS 04:39 THYROID PROFILE Ordered. EDMS 06:47 C REACTIVE PROTEIN QUANTITATIV Ordered. EDMS 18:42 T-Sheet-- Draft Copy was scanned into Rigel and attached to record. klr 05/29 12:33 ECG/EKG was scanned into Rigel and attached to record. gb Administered Medications: 05/28 02:40 Drug: Acetaminophen 975 mg [acetaminophen 325 mg tablet (3 tabs)] Route: PO; ko2 02:44 Drug: Albuterol-Ipratropium 3 ml [ipratropium-albuterol 0.5 mg-3 mg(2.5 mg base)/3 mL nk1 nebulization soln (3 mL)] Route: Inhalation; 02:50 Follow up: Response: Nebulizer completed nk1 04:12 Drug: cefUROXime 1.5 grams [cefuroxime sodium 750 mg solution for injection] Route: IV; ko2 Rate: calculated rate; Infused Over: 30 mins; Site: right forearm; 05:10 Follow up: IV Status: Completed infusion; IV Intake: 50ml ko2 Signatures: Dispatcher MedHost EDMS Sharee Kirk, Reg Reg gb Wilberto Stahlbeth, Dianetic Counselor Unit ml3 Marley Ramos,RN RN mf3 Eli Damon,RN RN dsf Guero White, DO cs11 Bonnie Olivo RN RN nia2 Michelle Hdz Mandie Goldstein Claire Donovan nk1 The chart was reviewed and I authenticate all verbal orders and agree with the evaluation and treatment provided.Corrections: (The following items were deleted from the chart) 06:47 04:26 C REACTIVE PROTEIN QUANTITATIV ordered. EDMS EDMS Attachments: 04:11 [facility] Payment Agreement [facility] 18:42 T-Sheet-- Draft Copy [facility] 05/29 12:33 ECG/EKG Chart Complete MTDD
--- NOTE | 2016-05-30 18:17 | EDDOCDS ---
Nurse's Notes [facility] Name: Braeden Marmolejo Age: 80 yrs Sex: Male : 1935 Arrival Date: 05/28/2016 Time: 01:32 Bed 19 Private MD: Diagnosis: Hypoxemia;Bronchitis, not specified as acute or chronic;Pneumonia in diseases classified elsewhere Presentation: 05/28 01:37 Presenting complaint: Presenting complaint: EMS states: pt was laying in bed and ko2 couldn't breath. Audible wheezes per EMS. Pt has felt like hes been getting a cold the last 4 days. 01:39 Suicide/Homicide risk assessment- the patient denies having any suicidal and/or ko2 homicidal ideations and does not present with any other emotional, behavioral or mental health complaints. Transition of care: patient was not received from another setting of care. Care prior to arrival: See EMS report. Medications administered prior to arrival: Nebulized Albuterol, Saline lock initiated. 01:39 Acuity: ARTURO Level 3 ko2 01:39 Method Of Arrival: Ambulance ko2 03:03 Adult Sepsis Screening: The patient does not have new or worsening altered mentation. ko2 Patient's respiratory rate is less than 22. Systolic blood pressure is greater than 100. Patient has a qSOFA score of 0- Negative Sepsis Screen. 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 Triage Assessment: 02:02 General: Appears in no apparent distress, Behavior is appropriate for age, cooperative. ko2 Pain: Denies pain. The patient is triaged at the bedside. See Assessment in Nurses Notes section of ED record. Neurological: Level of Consciousness is awake, alert. Respiratory: Onset: The symptoms/episode began/occurred suddenly, Airway is patent Respiratory effort is even, unlabored, Reports cough that is. Derm: Skin is normal. Historical: - Allergies: No known drug Allergies; - Home Meds: 1. carbidopa-levodopa 25-100 mg Oral tab 1 tab 3 times per day 2. lisinopril 10 mg Oral tab 1 tab TWICE A DAY 3. aspirin 81 mg Oral tab 1 tab once daily 4. Viagra 100 mg Oral tab 1 tab once daily 5. tamsulosin 0.4 mg oral cp24 1 cap once daily 6. simvastatin 40 mg Oral tab 1 tab once daily 7. Benadryl 25 mg Oral cap - PMHx: Parkinson's Disease; Hypertension; CAD; GERD; Esophageal Stricture; - PSHx: Heart stents; Pericardial tissue heart valve; Appendectomy; Disc surgery; - Social history: Smoking status: Patient states former smoker of tobacco. No barriers to communication noted, The patient speaks fluent Dominican, Speaks appropriately for age. - Family history: Not pertinent. - : The pt / caregiver states he / she is not on anticoagulants. Home medication list is obtained from pill bottles. - Exposure Risk Screening:: None identified. Screenin:03 Screening information is obtained from the patient. Fall risk: No risks identified. ko2 Assistance ADL's: requires no assistance with activities of daily living. Abuse/DV Screen: The patient / caregiver reports he/she is: not in a situation that causes fear, pain or injury. Nutritional screening: No deficits noted. Advance Directives: Currently, there is no health care proxy. There is no active DNR order. There is no living will. There is no Power of Compliance Spec. home support is adequate. Assessment: 02:02 General: See triage assessment. ko2 03:02 General: Appears in no apparent distress, Behavior is appropriate for age, cooperative. ko2 Pain: Denies pain. Neurological: Level of Consciousness is awake, alert. Cardiovascular: Heart tones S1 S2 present. Respiratory: Airway is patent Respiratory effort is even, unlabored, Breath sounds are diminished Breath sounds with wheezes. Derm: Skin is normal. 04:13 General: Appears in no apparent distress, Behavior is appropriate for age, cooperative. ko2 Neurological: Level of Consciousness is awake, alert. Respiratory: Airway is patent Respiratory effort is even, unlabored. Derm: Skin is normal, Skin temperature is warm. 05:23 General: Appears in no apparent distress, comfortable, Behavior is appropriate for age, ko2 cooperative. Neurological: Level of Consciousness is awake, alert. Respiratory: Airway is patent Respiratory effort is even, unlabored. Derm: Skin is normal. 06:25 General: Appears in no apparent distress, comfortable, Behavior is appropriate for age, ko2 cooperative. Neurological: Level of Consciousness is awake, alert. Respiratory: Airway is patent Respiratory effort is even, unlabored. Derm: Skin is normal. 07:11 General: Report given to JOSE D Nelson. See [facility] for further ko2 documentation.. 09:11 Cardiovascular: Rhythm is sinus rhythm. [facility] Vital Signs: 01:45 BP 113 / 58 LA Sitting (auto/reg); Pulse 121 MON; Resp 24 S; Temp 100.8(O); Pulse Ox cln 91% on 2 lpm NC; Weight 65.77 kg (R); Height 5 ft. 10 in. (177.80 cm) (R); Pain 0/10; 04:14 BP 101 / 56; Pulse 91; Resp 18; Temp 100.3(O); Pulse Ox 96% on R/A; ko2 07:00 Temp 99.8(TE); ko2 01:45 Body Mass Index 20.81 (65.77 kg, 177.80 cm) cln Vitals: 03:04 Log In Time N/A - ambulance arrival. ko2 ED Course: 01:33 Patient visited by Barbra Stahl, Ophthalmic Surgeon. ml3 01:33 Patient moved to Waiting ml3 01:35 Marie RodriguezRN is Primary Nurse. ml3 01:35 Bonnie Olivo,JOSE D is Primary Nurse. ml3 01:35 Patient moved to 9 ml3 01:41 Triage Initiated ko2 01:46 Patient visited by Anjana Mosley, ZACHARY. cln 02:03 Patient visited by Bonnie Olivo RN. ko2 02:03 Maintain field IV. Dressing intact. Good blood return noted. Site clean & dry. Gauge & ko2 site: 18 gauge right AC. 02:05 Mao Crisostomo DO is Attending Physician. cs11 02:06 Patient visited by Mao Crisostomo DO. cs11 02:44 -Arterial Blood Gas Sent. nk1 02:55 Discontinued lock intact, bleeding controlled, pressure dressing applied, No ko2 redness/swelling at site. 03:00 Inserted saline lock: 20 gauge in left forearm. ko2 03:01 Patient visited by Bonnie Olivo RN. ko2 03:02 BLOOD CULTURES Sent. ko2 03:02 MED Profile Sent. ko2 03:02 CBC with Diff Sent. ko2 03:02 Lactic Acid (Drake tube on ice) Sent. ko2 03:02 -Influenza A&B Rapid Antigen - Nose Sent. ko2 03:03 The patient / caregiver is instructed regarding the plan of care and ED course. ko2 03:52 Patient visited by Bonnie Olivo RN. ko2 04:05 Margaret Thomas is Hospitalizing Provider. cs11 04:09 Patient name changed from Braeden\S\\S\Snow\S\ to Braeden\S\J\S\Snow. EDMS 04:11 [facility] Payment Agreement was scanned into Gimah[employer] and attached to record. [facility] 04:36 EKG done. (by ED staff). Reviewed by Mao Crisostomo DO. cln 04:40 Primary Nurse role handed off by Marie Rodriguez RN ko2 04:51 Patient moved to Admit Hold ml3 05:24 Patient visited by Bonnie Olivo RN. ko2 06:42 Patient moved to Apr 07:44 Primary Nurse role handed off by Bonnie Olivo RN ar3 08:49 Chest, 2 View (pa\E\lat) Returned. EDMS 09:11 Patient visited by Dimitry Glover RN. j 09:24 EKG-ADULT Returned. EDMS 18:42 T-Sheet-- Draft Copy was scanned into [employer] and attached to record. klr 02 12:33 ECG/EKG was scanned into [employer]im[employer] and attached to record. gb Administered Medications: 05/28 02:40 Drug: Acetaminophen 975 mg [acetaminophen 325 mg tablet (3 tabs)] Route: PO; ko2 02:44 Drug: Albuterol-Ipratropium 3 ml [ipratropium-albuterol 0.5 mg-3 mg(2.5 mg base)/3 mL nk1 nebulization soln (3 mL)] Route: Inhalation; 02:50 Follow up: Response: Nebulizer completed nk1 04:12 Drug: cefUROXime 1.5 grams [cefuroxime sodium 750 mg solution for injection] Route: IV; ko2 Rate: calculated rate; Infused Over: 30 mins; Site: right forearm; 05:10 Follow up: IV Status: Completed infusion; IV Intake: 50ml ko2 Intake: 05:10 IV: 50.00ml; Total: 50.00ml. ko2 RT: 02:44 ABG's drawn from left brachial artery pressure held for 5 minuntes no bleeding noted nk1 pressure bandage applied specimen sent pt. tolerated well. Initial Med Neb Given as ordered Patient was instructed and evaluated on procedure Patient tolerated procedure well without adverse effect. Respiratory: Airway is patent Respiratory effort is even, unlabored, Breath sounds are coarse. 02:49 Respiratory: Breath sounds are coarse with increased aeration. nk1 Order Results: Lab Order: -Influenza A&B Rapid Antigen - Nose; SPEC'M 05/28/16 02:58 Test: INFLUENZA A RAPID SCR by ICA; Value: INFLUENZA A RESULTS NEGATIVE; Status: F Test: INFLUENZA A RAPID SCR by ICA; Value: Comments:; Status: F Test: INFLUENZA B RAPID SCR by ICA; Value: INFLUENZA B RESULTS NEGATIVE; Status: F Test Note: ; The Influenza test is a direct rapid immunoassay for the qualitative detection of Influenza viral antigen. Cell culture (Viral Culture) testing should be considered to confirm NEGATIVE results and to assist in detecting other viruses that can provide similar clinical symptoms. Please contact the lab within 24 hours ([phone]) if confirmatory testing is desired. Lab Order: Lactic Acid (Drake tube on ice); SPEC'M 05/28/16 02:58 Test: LACTIC ACID SEPSIS PROTOCOL; Value: 1.9; Range: 0.4-2.0; Units: MMOL/L; Status: F Lab Order: CBC with Diff; SPEC'M 05/28/16 02:58 Test: WHITE BLOOD COUNT; Value: 12.3; Range: 4.0-10.0; Abnormal: Above high normal; Units: K/mm3; Status: F Test: RED BLOOD COUNT; Value: 4.37; Range: 4.30-6.10; Units: M/mm3; Status: F Test: HEMOGLOBIN; Value: 13.7; Range: 14.0-18.0; Abnormal: Below low normal; Units: g/dl; Status: F Test: HEMATOCRIT; Value: 42.1; Range: 42.0-52.0; Units: %; Status: F Test: MEAN CORPUSCULAR VOLUME; Value: 96.3; Range: 80.0-96.0; Abnormal: Above high normal; Units: fl; Status: F Test: MEAN CORPUSCULAR HEMOGLOBIN; Value: 31.3; Range: 27.0-33.0; Units: pg; Status: F Test: MEAN CORPUSCULAR HGB CONC; Value: 32.5; Range: 32.0-36.5; Units: g/dl; Status: F Test: RED CELL DISTRIBUTION WIDTH; Value: 12.5; Range: 11.5-14.5; Units: %; Status: F Test: PLATELET COUNT, AUTOMATED; Value: 164; Range: 150-450; Units: k/mm3; Status: F Test: NEUTROPHILS %; Value: 89.0; Range: 36.0-66.0; Abnormal: Above high normal; Units: %; Status: F Test: LYMPH %; Value: 3.5; Range: 24.0-44.0; Abnormal: Below low normal; Units: %; Status: F Test: MONO %; Value: 5.0; Range: 0.0-5.0; Units: %; Status: F Test: EOS %; Value: 0.6; Range: 0.0-3.0; Units: %; Status: F Test: BASO %; Value: 0.4; Range: 0.0-1.0; Units: %; Status: F Test: LARGE UNSTAINED CELL %; Value: 1.5; Range: 0.0-4.0; Units: %; Status: F Test: NEUTROPHILS #; Value: 11.0; Range: 1.8-7.7; Abnormal: Above high normal; Units: K/mm3; Status: F Test: LYMPH #; Value: 0.4; Range: 1.5-4.5; Abnormal: Below low normal; Units: K/mm3; Status: F Test: MONO #; Value: 0.6; Range: 0.0-0.8; Units: K/mm3; Status: F Test: EOS #; Value: 0.1; Range: 0.0-0.50; Units: K/mm3; Status: F Test: BASO #; Value: 0.0; Range: 0.0-0.2; Units: K/mm3; Status: F Test: LARGE UNSTAINED CELL #; Value: 0.2; Range: 0.0-0.4; Units: K/mm3; Status: F Lab Order: MED Profile; SPEC'M 05/28/16 02:58 Test: GLUCOSE, FASTING; Value: 122; Range: 83-110; Abnormal: Above high normal; Units: MG/DL; Status: F Test: BLOOD UREA NITROGEN; Value: 27; Range: 7-18; Abnormal: Above high normal; Units: MG/DL; Status: F Test: CREATININE FOR GFR; Value: 1.19; Range: 0.70-1.30; Units: MG/DL; Status: F Test: GLOMERULAR FILTRATION RATE; Value: > 60.0; Range: >35; Status: F Test: SODIUM LEVEL; Value: 142; Range: 136-145; Units: MEQ/L; Status: F Test: POTASSIUM SERUM; Value: 5.1; Range: 3.5-5.1; Units: MEQ/L; Status: F Test: CHLORIDE LEVEL; Value: 104; Range: 98-107; Units: MEQ/L; Status: F Test: CARBON DIOXIDE LEVEL; Value: 29; Range: 21-32; Units: MEQ/L; Status: F Test: ANION GAP; Value: 9; Range: 8-16; Units: MEQ/L; Status: F Test: CALCIUM LEVEL; Value: 8.2; Range: 8.8-10.2; Abnormal: Below low normal; Units: MG/DL; Status: F Test Note: ; Units are mL/min/1.73 m2 Chronic Kidney Disease Staging per NKF: Stage I & II GFR >=60 Normal to Mildly Decreased Stage III GFR 30-59 Moderately Decreased Stage IV GFR 15-29 Severely Decreased Stage V GFR <15 Very Little GFR Left ESRD GFR <15 on GARAGE MECHANIC Lab Order: -Arterial Blood Gas; [facility] 05/28/16 02:27 Test: ABG pH (ARTERIAL); Value: 7.443; Range: 7.350-7.450; Units: UNITS; Status: F Test: ABG PARTIAL PRESSURE CO2; Value: 35.3; Range: 35.0-45.0; Units: mmHg; Status: F Test: ABG PARTIAL PRESSURE O2; Value: 65.4; Range: 75.0-100.0; Abnormal: Below low normal; Units: mmHg; Status: F Test: ABG TOTAL CO2; Value: 24.7; Range: 23.0-31.0; Units: MEQ/L; Status: F Test: ABG HCO3; Value: 23.6; Range: 22.0-26.0; Units: MEQ/L; Status: F Test: ABG BASE EXCESS; Value: 0.0; Range: -2.0-2.0; Status: F Test: ABG STANDARD HCO3; Value: 24.4; Range: 22.0-26.0; Units: MEQ/L; Status: F Test: ABG O2 SATURATION; Value: 94.1; Range: 95.0-99.0; Abnormal: Below low normal; Units: %; Status: F Test: ABG DEVICE; Value: NASAL SHUN; Status: F Lab Order: RESPIRATORY PANEL; SPEC'M 05/28/16 02:57 Test: RESPIRATORY PANEL; Value: RP PANEL RESULT POSITIVE by PCR; Abnormal: Abnormal; Status: F Test: RESPIRATORY PANEL; Value: Comments:; Status: F Test: RESPIRATORY PANEL; Value: ORGANISM 1: RESPIRATORY SYNCYTIAL VIRUS; Status: F Test: RESPIRATORY PANEL; Value: RESPIRATORY SYNCYTIAL VIRUS; Status: F Test: RESPIRATORY PANEL; Value: RSV 1 RSV is the most common cause of severe respiratory; Status: F Test: RESPIRATORY PANEL; Value: RSV 2 disease in infants, with acute bronchiolitis as the; Status: F Test: RESPIRATORY PANEL; Value: RSV 3 major cause of hospitalization. Treatment or; Status: F Test: RESPIRATORY PANEL; Value: RSV 4 prophlaxis with a humanized monoclonal antibody; Status: F Test: RESPIRATORY PANEL; Value: RSV 5 has shown a reduction in disease for high risk infants.; Status: F Test Note: ; This respiratory PCR panel detects Influenza A H1, H3 and 2009 H1 viruses, Influenza B virus, Respiratory syncytial virus, Human metapneumovirus, Parainfluenza virus 1, 2, 3 and 4, Adenovirus, Rhinovirus/Enterovirus, Coronavirus HKU1, NL63, OC43 and 229E, Bordetella pertussis, Mycoplasma pneumoniae and Chlamydia pneumoniae. Lab Order: SPUTUM CULTURE AND GRAM STAIN; SPEC'M 05/28/16 10:54 Test: GRAM STAIN; Value: GRAM STAIN RESULT; Status: F Test: GRAM STAIN; Value: QUALITY: GOOD; Status: F Test: GRAM STAIN; Value: MANY WBCS; Status: F Test: GRAM STAIN; Value: FEW EPITHELIAL CELLS; Status: F Test: GRAM STAIN; Value: FEW GRAM POSITIVE COCCI IN CLUSTERS AND CHAINS; Status: F Lab Order: THYROID PROFILE; SPEC'M 05/28/16 06:31 Test: T UPTAKE; Value: 42; Range: 33-40; Abnormal: Above high normal; Units: %; Status: F Test: THYROXINE (T4); Value: 8.9; Range: 4.5-12.0; Units: UG/DL; Status: F Test: FREE THYROXINE INDEX; Value: 3.7; Range: 1.4-3.8; Units: %; Status: F Test: THYROID STIMULATING HORMONE; Value: 0.903; Range: 0.358-3.740; Units: uIU/ML; Status: F Lab Order: C REACTIVE PROTEIN QUANTITATIV; SPEC'M 05/28/16 06:31 Test: C REACTIVE PROTEIN QUANTITATIV; Value: 0.74; Range: 0.00-0.30; Abnormal: Above high normal; Units: MG/DL; Status: F Radiology Order: Chest, 2 View (pa\E\lat) Test: Chest, 2 View (pa\E\lat) REASON FOR EXAMINATION: Shortness of Breath; CHEST X-RAY: Two views.; ; HISTORY: Shortness of breath.; ; Comparison chest x-ray June 17, 2009.; ; FINDINGS: Oxygen delivery tubing is seen. The lungs are hyperinflated; consistent with COPD. The patient is status post aortic valve replacement. The; heart is not enlarged. No infiltrate is seen in the lung martínez. Pleural angles; are sharp. There are degenerative changes in the thoracic spine.; ; IMPRESSION: Hyperinflation consistent with COPD. Aortic valve replacement. No; acute disease.; ; ; Signed by; Daniel Greene MD 05/28/2016 10:06 A; Radiology Order: EKG-ADULT Test: EKG-ADULT REASON FOR EXAMINATION: eval tachycardia; Stationary ECG Study; [facility] - ED; ; Test Date: 2016-05-28; Pat Name: BRAEDEN MARMOLEJO Department:; Room: [place] [address]; Gender: M Forensic Medical Examiner: cn; : 1935 Requested By: MAO CRISOSTOMO; Order Number: [id number] Reading MD: Jolie Bryan; Measurements; Intervals [place]; Rate: 87 P: 49; W[place]: 168 QRS: -24; QRSD: 78 T: 41; QT: 338; QTc: 407; Interpretive Statements; SINUS RHYTHM; LOW VOLTAGE LIMB; BORDERLINE LEFT AXIS DEVIATION; MODERATE ST DEPRESSION; BASELINE ARTIFACT LIMITS INTERPRETATION; NO PRIOR FOR COMPARISON; Electronically Signed On 05-28-2016 9:05:31 EST by Jolie Bryan; Outcome: 04:07 Decision to Hospitalize by Provider. cs11 17:16 Patient left the ED. dsf Signatures: Dispatcher [employer] EDDimitry Guerrero, RN RN elvie Desai, Orly Wagner, RN JOSE D Kirk, Sharee, Reg Reg gb Favio, Barbra, Ophthalmic Surgeon Unit ml3 Claire Smith,RT RT nk1 Shyanne Obrien, CNA PER DIEM CNA PER DIEM ar3 Eli Damon,RN RN dsf Mao Crisostomo, DO cs11 Bonnie OlivoRN RN Michelle Cat Crystal, CNA PER DIEM CNA PER DIEM risan Mandie Spears Corrections: (The following items were deleted from the chart) 01:41 01:37 Presenting complaint: ko2 ko2 Chart Complete MTDD
--- NOTE | 2016-05-30 18:17 | EDDOCDS ---
Physician Documentation [facility] Name: Braeden Marmolejo Age: 80 yrs Sex: Male : 1935 Arrival Date: 05/28/2016 Time: 01:32 Bed 19 Private MD: Disposition: 05/28/16 04:07 Hospitalization ordered by Margaret Thomas for Inpatient Admission. Preliminary diagnosis are Hypoxemia, Bronchitis, not specified as acute or chronic, Pneumonia in diseases classified elsewhere. - Bed requested for PCU. - Status is Inpatient Admission. dsf - Condition is Stable. - Problem is new. - Symptoms have improved. Historical: - Allergies: No known drug Allergies; - Home Meds: 1. carbidopa-levodopa 25-100 mg Oral tab 1 tab 3 times per day 2. lisinopril 10 mg Oral tab 1 tab TWICE A DAY 3. aspirin 81 mg Oral tab 1 tab once daily 4. Viagra 100 mg Oral tab 1 tab once daily 5. tamsulosin 0.4 mg oral cp24 1 cap once daily 6. simvastatin 40 mg Oral tab 1 tab once daily 7. Benadryl 25 mg Oral cap - PMHx: Parkinson's Disease; Hypertension; CAD; GERD; Esophageal Stricture; - PSHx: Heart stents; Pericardial tissue heart valve; Appendectomy; Disc surgery; - Social history: Smoking status: Patient states former smoker of tobacco. No barriers to communication noted, The patient speaks fluent [place], Speaks appropriately for age. - Family history: Not pertinent. - : The pt / caregiver states he / she is not on anticoagulants. Home medication list is obtained from pill bottles. - Exposure Risk Screening:: None identified. Vital Signs: 05/28 01:45 BP 113 / 58 LA Sitting (auto/reg); Pulse 121 MON; Resp 24 S; Temp 100.8(O); Pulse Ox cln 91% on 2 lpm NC; Weight 65.77 kg / 145 lbs (R); Height 5 ft. 10 in. (177.80 cm) (R); Pain 0/10; 04:14 BP 101 / 56; Pulse 91; Resp 18; Temp 100.3(O); Pulse Ox 96% on R/A; ko2 07:00 Temp 99.8(TE); ko2 01:45 Body Mass Index 20.81 (65.77 kg, 177.80 cm) cln MDM: 02:16 Chest, 2 View (pa\E\lat) Ordered. EDMS 02:16 -Blood Culture (Adults Only), peripheral from different site, or from device/port/PICC cs11 etc. if present ordered. 02:16 Call Respiratory ordered. cs11 02:16 IV Saline Lock ordered. cs11 02:16 Acetaminophen Tablet 975 mg PO once ordered. cs11 02:17 Albuterol-Ipratropium 3 ml Inhalation once ordered. cs11 02:17 Call Respiratory ordered. cs11 02:17 -Blood Culture (Adults Only), peripheral from different site, or from device/port/PICC ml3 etc. if present complete. 02:17 Lactic Acid (Drake tube on ice) Ordered. EDMS 02:17 CBC with Diff Ordered. EDMS 02:17 MED Profile Ordered. EDMS 02:17 -Arterial Blood Gas Ordered. EDMS 02:17 -Influenza A&B Rapid Antigen - Nose Ordered. EDMS 02:17 -Blood Culture Ordered. EDMS 02:18 Call Respiratory complete. ml3 02:18 Call Respiratory complete. ml3 02:20 BLOOD CULTURES Ordered. EDMS 03:12 -Arterial Blood Gas Reviewed. cs11 03:38 Financial registration complete. slh 03:53 CBC with Diff Reviewed. cs11 03:53 MED Profile Reviewed. cs11 03:53 -Influenza A&B Rapid Antigen - Nose Reviewed. cs11 03:53 Lactic Acid (Drake tube on ice) Reviewed. cs11 03:55 cefUROXime 1.5 grams IV at calculated rate once over 30 mins; dilute in 50mL of NS or cs11 D5W ordered. 04:01 BED REQUEST+ADM ordered. EDMS 04:11 [facility] Payment Agreement was scanned into [employer] and attached to record. slh 04:23 ECG WITH READING ER PHYS+CARDIAG ordered. EDMS 04:26 RESPIRATORY PANEL Ordered. EDMS 04:26 SPUTUM CULTURE AND GRAM STAIN Ordered. EDMS 04:30 PHYSICAL THERAPY EVAL & TREAT ordered. EDMS 04:31 Admission / Observation Status ordered. EDMS 04:32 LOW FAT LOW CHOLESTEROL DIET ordered. EDMS 04:39 THYROID PROFILE Ordered. EDMS 06:47 C REACTIVE PROTEIN QUANTITATIV Ordered. EDMS 18:42 T-Sheet-- Draft Copy was scanned into [employer] and attached to record. klr 05/29 12:33 ECG/EKG was scanned into [employer] and attached to record. gb Administered Medications: 05/28 02:40 Drug: Acetaminophen 975 mg [acetaminophen 325 mg tablet (3 tabs)] Route: PO; ko2 02:44 Drug: Albuterol-Ipratropium 3 ml [ipratropium-albuterol 0.5 mg-3 mg(2.5 mg base)/3 mL nk1 nebulization soln (3 mL)] Route: Inhalation; 02:50 Follow up: Response: Nebulizer completed nk1 04:12 Drug: cefUROXime 1.5 grams [cefuroxime sodium 750 mg solution for injection] Route: IV; ko2 Rate: calculated rate; Infused Over: 30 mins; Site: right forearm; 05:10 Follow up: IV Status: Completed infusion; IV Intake: 50ml ko2 Signatures: Dispatcher [employer] EDMS Sharee Kirk, Reg Reg gb Wilberto Stahlbeth, Assistant Professor [employer] ml3 Marley Ramos,RN RN mf3 Eli Damon,RN RN dsf uGero White, DO cs11 Bonnie Olivo RN RN nia2 Michelle Hdz Mandie Goldstein Claire Donovan nk1 The chart was reviewed and I authenticate all verbal orders and agree with the evaluation and treatment provided.Corrections: (The following items were deleted from the chart) 06:47 04:26 C REACTIVE PROTEIN QUANTITATIV ordered. EDMS EDMS Attachments: 04:11 [facility] Payment Agreement [facility] 18:42 T-Sheet-- Draft Copy [facility] 05/29 12:33 ECG/EKG Chart Complete MTDD
== END 2016-05-29 11:32 | disposition home or self-care (01) | DRG 192 ==
LOC: M ED 01:32 → M PCU 04:23 → M ED INP 04:24 → M PCU 17:04
PROVIDERS: ADMIT Hospitalist; ATTEND Internal Medicine
DX: J44.1 Chronic obstructive pulmonary disease with (acute) exacerbation (principal); I10 Essential (primary) hypertension; I25.10 Atherosclerotic heart disease of native coronary artery without angina pectoris; K21.9 Gastro-esophageal reflux disease without esophagitis; G20 Parkinson's disease; B97.4 Respiratory syncytial virus as the cause of diseases classified elsewhere; Z77.090 Contact with and (suspected) exposure to asbestos; K22.2 Esophageal obstruction; Z79.899 Other long term (current) drug therapy; Z79.82 Long term (current) use of aspirin; Z87.891 Personal history of nicotine dependence; R00.1 Bradycardia, unspecified; E78.5 Hyperlipidemia, unspecified; R06.00 Dyspnea, unspecified